=== PATIENT | male | born 1950 | race Caucasian/White ===

== ENCOUNTER → 2022-01-10 00:29 | Outpatient (CLI) | payer MEDICARE, SELFPAY ==
--- NOTE | 2022-01-10 11:00 | DI.NM_ITS ---
APPROVED REPORT Exam: Exercise Treadmill Patient Location: Out-Patient Room/Bed: Stress Nurse: Charla Hinds RN Ordering Provider:ANTIONETTE RAMIREZ MD Contact Number: [phone] BMI: 33.08 Baseline Rhythm: Sinus bradycardia, LBBB Comment: Rare PAC Indications: LBBB, abnormal EKG, atherosclerosis, hypertension Medical History Medical History: Atherosclerosis, hypertension, hyperlipidemia, smoker (current), osteoarthritis, imp aired fasting glucose Cardiac Medications: Atorvastatin, tumeric-curcumin Allergies: NKA Cardiac Risk Factors: Hypertension, hyperlipidemia, CVD, smoker (current), CVD Previous Cardiac Procedures: None Pretest Chest Pain Characteristics: None Exercise History: Sedentary Physical Disabilities: None Lung Sounds: Clear to auscultation, Clear to auscultation Heart Sounds: Regular Stress Test Details Test: Pharmacologic stress was paired with low level exercise. Reason for pharmacologic stress test: changed from exercise stress test due to inability to reach t arget heart rate. Nuclear Acquisition: Rest Tc-99m/Stress Tc-99m 1 day Rest Isotope: Tc-99m Sestamibi. Dose: 10.0 Date: 01/10/2022 Injection Time: 1110 Stress Isotope: Tc-99m Sestamibi. Dose: 32.3 Date: 01/10/2022 Injection Time: 1322 HR Resting HR Supine: 57 bpm Max Heart Rate (APMHR): 147.490244 bpm Resting HR Standin bpm Target HR (85% APMHR): 124.308172 bpm Max HR Achieved: 117 bpm % of APMHR: 79.59 Recovery HR: 88 bpm BP Resting BP Supine: 152/72 mmHg Resting BP Standin/70 mmHg Max BP: 170/64 mmHg Recovery BP: 142/60 mmHg ECG Resting ECG: Sinus Bradycardia, LBBB Ectopy: Rare PACs Stress ECG: Sinus Tachycardia, LBBB ST Change: Nondiagnostic LBBB Arrhythmia: Occasional PVCs Recovery ECG: Sinus Rhythm, LBBB Recovery ST Change: Nondiagnostic LBBB Recovery Arrhythmia: Occasional PVCs Clinical Stress Symptoms: General Fatigue, Dyspnea Rate Pressure Product: [id number] Stress ECG Conclusion 1. Resting electrocardiogram showed a left bundle branch block 2. The patient underwent low-level exercise coupled with pharmacologic stress with regadenoson 3. Peak heart rate achieved was 79% of predicted for age 4. Electrocardiographic portion of the test was nondiagnostic due to abnormal resting EKG (LBBB) 5. See MPI report Stress Test Summary STAGE HR BP Symptoms NOTES Supine 57 152/72 SpO2 95% 1 min post Lexiscan injection 114 148/78 Moderate SOB SpO2 92% 3 min post Lexiscan injection 103 170/64 Mild SOB SpO2 93% 6 min post Lexiscan injection 88 142/60 SOB resolved SpO2 94% Pharmacologic stress was paired with low level exercise due to LBBB at 1.4 mph and 0% grade. Pt dina ated low level exercise and Lexiscan well. MPI Conclusion Myocardial perfusion appeared normal without evidence of ischemia or infarction EF was 40%, mild global hypokinesis Radiologist Interpretation Radiologist Interpretation by: Arun Senior MD Interpretation Date/Time: 01/10/2022 17:22:32
[2022-01-10] MEDS: Regadenoson 0.4 MG/5 ML SYR IVP (13:39)
== END ==
PROVIDERS: PCP Internal Medicine Interventional Cardiology; Visit Provider Internal Medicine Interventional Cardiology
DX: R94.31 Abnormal electrocardiogram [ECG] [EKG] (principal); I10 Essential (primary) hypertension; I44.7 Left bundle-branch block, unspecified
CPT/HCPCS: 78452; 93016; 93018; 93017; J2785